=== PATIENT | male | born 1980 | race Two or more races ===

== ENCOUNTER 2019-02-16 15:08 | Emergency (ER) | payer OTHER ==
[~2019-02-16] VITALS: Ht 177.8 cm; Wt 77.1 kg
[2019-02-16] MEDS ORDERED: PROZAC10 MG ORAL (15:13)
[2019-02-16 15:17] VITALS: BP 159/90
--- NOTE | 2019-02-16 15:17 | NUR ---
ED Nurse Note: Pt brought in by EMS due to chest pain and anxiety on and off x 1 week. Pt states he stopped prozac and about to start depakote per his psychiatrist order. CP aggravated today and was hyperventilating per EMS. AAO x4, ambulatory with mild SOB at rest. Sat 100 % in room air.
--- NOTE | 2019-02-16 15:20 | Emergency Room Report ---
History of Present Illness General Chief Complaint: Chest Pain Source: Patient Present Illness HPI Disclaimer: Please note that this report is being documented using DRAGON technology. This can lead to erroneous entry secondary to incorrect interpretation by the dictating instrument. HPI: 38-year-old male with history of anxiety, depression presents for evaluation of chest pain. Patient was his usual state of health while he was driving on the street and began to feel tachycardic, diaphoretic and noticed some squeezing pressure over the sternum. This pain did not radiate. He was somewhat lightheaded and pulled over calling EMS. States this is happened to him several times before and even leads to syncope and has had several panic attacks over the past few years. He was taken off Prozac 5 days ago by psychiatrist and was scheduled to start Depakote today but has not yet started taking it. This morning, he did participate in hot yoga and then went to the beach after stating that he has not had anything to drink and feels quite dehydrated. His chest pain is improving. He is breathing easy and denies any lightheadedness or dizziness at this time. He denies any recent fever, chills, changes in his vision, neck or back pain, chest pain prior to today, shortness of breath, cough, abdominal pain, vomiting, diarrhea or dysuria or rash. PMH: Anxiety, depression PSH: Vasectomy Allergies: Occasional marijuana use. Former cocaine abuse. Denies alcohol abuse, denies tobacco use Social Hx: [] Allergies: Uncoded Allergies: HALLUCINOGENS (Allergy, Unknown, 02/16/19) Nursing Documentation-PMH Past Medical History: No History, Except For History Of Psychiatric Problem: Yes - depression, anxiety Review of Systems All Other Systems: negative except mentioned in HPI Physical Exam Vital Signs Date Time Temp Pulse Resp B/P (MAP) Pulse Ox O2 Delivery O2 Flow Rate FiO2 02/16/19 15:07 111 18 160/100 (120) 99 Room Air General: Awake and alert, no acute distress HEENT: NC/AT. EOMI. Neck: Supple, trachea midline Chest Wall: No tenderness, no deformity Cardiovascular: RRR. S1 and S2 normal. No murmur appreciated Resp: Normal work of breathing. No cough, wheezing or crackles appreciated Abdomen: Abdomen is soft, nondistended. Nontender Skin: Intact. No abrasions, laceration or rash over the exposed skin MSK: Normal tone and bulk. Moving all extremities. No obvious deformity. Neuro: Awake and alert. Mentating appropriately. Medical Decision Making Diagnostic Impression: Primary Impression: Chest pain ER Course 38-year-old male with history of anxiety and depression who recently stopped taking Prozac presents for evaluation of chest tightness, shortness of breath, lightheadedness and tachycardia. His symptoms are now improving. He states he is very dehydrated from hot yoga and going to the beach today not drinking any water. He also believes he was having a small panic attack en route but is now feeling better. Overall, his vital signs are stable and physical exam is reassuring. Differential includes but is not limited to anxiety attack, SSRI withdrawal, ACS, bronchospasm, dehydration. Will start IV fluids for hydration and perform a chest pain work-up with EKG, chest x-ray and labs. Overall, he is well-appearing and I believe he may be discharged home if symptomatically improved. May give a small dose of anxiolytics based on his level of improvement on reevaluation. EKG Diagnostic Results EKG Time: 15:18 Rate: tachycardiac Rhythm: NSR ST Segments: no acute changes Other Impression Prolonged QTC at 5 3 4 ms Rhythm Strip Diag. Results Rhythm Strip Time: 15:18 EP Interpretation: yes Rate: 100s Rhythm: NSR Chest X-Ray Diagnostic Results Chest X-Ray Diagnostic Results : Chest X-Ray Ordered: Yes # of Views/Limited/Complete: 1 View Indication: Chest Pain EP Interpretation: Yes Interpretation: no consolidation, no effusion, no pneumothorax Impression: No acute disease Electronically Signed by: Electronically signed by Dr. Bonifacio Astudillo Reevaluation Time: 17:25 Last Vital Signs Date Time Temp Pulse Resp B/P (MAP) Pulse Ox O2 Delivery O2 Flow Rate FiO2 02/16/19 15:07 111 18 160/100 (120) 99 Room Air Status: improved Reevaluation Impression Lab work is returned largely within normal limits aside from an elevated creatinine to which the patient states he is already aware. His potassium is slightly low at 3.1 and we will give him oral supplementation for the next 3 days. 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 Labs are otherwise unremarkable and troponin is negative. His symptoms now completely resolved. He believes it was anxiety and dehydration to which I agree. He is stable and appropriate for discharge home and outpatient follow-up. We discussed reasons to return to the emergency department. He understands and agrees with this treatment plan. Disposition: HOME, SELF-CARE Condition: Improved Scripts Potassium Chloride (KLOR-CON) 20 Meq Packet 40 MEQ ORAL DAILY, #6 PKT 0 Refills Prov: Bonifacio Astudillo MD 02/16/19 Bonifacio Astudillo MD Feb 16, 2019 15:20
--- NOTE | 2019-02-16 15:59 | NUR ---
ED Nurse Note: Collected blood then sent.
[2019-02-16 16:17] LABS: BASOPHILS % (AUTO) 0.9 % (0.0-2.0); EOSINOPHILS % (AUTO) 0.2 % (0.0-3.0); HEMATOCRIT 48.6 % (42.0-52.0); HEMOGLOBIN 16.6 G/DL (14.2-18.0); MEAN CORPUSCULAR VOLUME 87 FL (80-99); MONOCYTES % (AUTO) 6.7 % (1.0-10.0); NEUTROPHILS % (AUTO) 78.2 % (45.0-75.0); PLATELET COUNT 277 K/UL (150-450); RED BLOOD COUNT 5.57 M/UL (4.70-6.10); RED CELL DISTRIBUTION WIDTH 11.7 % (11.6-14.8); WHITE BLOOD COUNT 13.7 K/UL (4.8-10.8)
[2019-02-16 16:32] LABS: ANION GAP 14 mmol/L (5-15); BLOOD UREA NITROGEN 24 mg/dL (7-18); CARBON DIOXIDE 25 MMOL/L (21-32); CHLORIDE 101 MMOL/L (98-107); CREATININE 1.6 MG/DL (0.55-1.30); POTASSIUM 3.1 MMOL/L (3.5-5.1); SODIUM 140 MMOL/L (136-145)
[2019-02-16 16:47] LABS: ALANINE AMINOTRANSFERASE 29 U/L (12-78); ALBUMIN 4.4 G/DL (3.4-5.0); ALKALINE PHOSPHATASE 84 U/L (46-116); ASPARTATE AMINO TRANSFERASE 35 U/L (15-37); BILIRUBIN,TOTAL 1.3 MG/DL (0.2-1.0); CKMB 7.8 NG/ML (0.0-3.6); CREATINE KINASE 576 U/L (26-308)
[2019-02-16 17:00] LABS: BILIRUBIN,DIRECT 0.2 MG/DL (0.0-0.3)
[2019-02-16 17:20] VITALS: BP 134/70
[2019-02-16] MEDS ORDERED: KLOR-CON20 MEQ ORAL (17:28)
[2019-02-16 17:40] VITALS: BP 146/78
--- NOTE | 2019-02-16 17:40 | NUR ---
ER DISCHARGE NOTE: Patient is cleared to be discharged per ERMD, pt is aox4, on room air, with stable vital signs. pt was given dc and prescription instructions, pt was able to verbalize understanding, pt id band and iv site removed without complications. pt is able to ambulate with steady gait. pt took all belongings.
--- NOTE | 2019-02-17 12:13 | Cardiology Report ---
APPROVED REPORT EKG Measurement Heart [id number] Sinus tachycardia Biatrial enlargement Prolonged QT Abnormal ECG
--- NOTE | 2019-02-17 12:50 | Diagnostic Imaging Report ---
Indication: Dyspnea Comparison: None A single view chest radiograph was obtained. Findings: Cardiomediastinal appearance is within normal limits for age. The lungs are clear. Pulmonary vascularity is appropriate. The diaphragmatic contour is smooth and costophrenic angles are sharp. No pleural effusions are identified. The bones are unremarkable. Impression: No acute findings
== END 2019-02-16 17:40 | disposition home or self-care (01) ==
LOC: EDBD 15:08 → EMR 17:40
DX: R07.9 Chest pain, unspecified (principal); R00.0 Tachycardia, unspecified; F41.9 Anxiety disorder, unspecified; F32.9 Major depressive disorder, single episode, unspecified; Z88.8 Allergy status to other drugs, medicaments and biological substances
CPT/HCPCS: 36415; 71045; 80053; 82248; 82550; 82553; 84484; 85025; 93005; 96360; 96361; 99284